=== PATIENT | female | born 1945 | race Caucasian/White ===

== ENCOUNTER 2023-08-11 15:01 | Outpatient (RCR) | payer OTHER, MEDICARE, SELFPAY | END 2023-08-11 23:59 | disposition home or self-care (01) | LOC: RPT 15:01 | PROVIDERS: ATTENDING PHYSICIAN Orthopaedic Surgery; FAMILY PHYSICIAN Student in an Organized Health Care Education/Training Program | DX: M54.2 Cervicalgia (principal); M47.812 Spondylosis without myelopathy or radiculopathy, cervical region; M75.81 Other shoulder lesions, right shoulder; M25.511 Pain in right shoulder; M75.41 Impingement syndrome of right shoulder; S42.101S Fracture of unspecified part of scapula, right shoulder, sequela; Z73.6 Limitation of activities due to disability | CPT/HCPCS: 97010; 97110; 97112; 97162; 97530 ==

== ENCOUNTER 2023-09-09 13:54 | Outpatient (RCR) | payer OTHER, MEDICARE, SELFPAY | END 2023-09-09 23:59 | disposition home or self-care (01) | LOC: RPT 13:54 | PROVIDERS: ATTENDING PHYSICIAN Orthopaedic Surgery; FAMILY PHYSICIAN Student in an Organized Health Care Education/Training Program | DX: M54.2 Cervicalgia (principal); M47.812 Spondylosis without myelopathy or radiculopathy, cervical region; M75.81 Other shoulder lesions, right shoulder; M25.511 Pain in right shoulder; M75.41 Impingement syndrome of right shoulder; S42.101D Fracture of unspecified part of scapula, right shoulder, subsequent encounter for fracture with routine healing; Z73.6 Limitation of activities due to disability; M62.81 Muscle weakness (generalized); R29.3 Abnormal posture; M25.611 Stiffness of right shoulder, not elsewhere classified | CPT/HCPCS: 97010; 97110; 97112 ==

== ENCOUNTER 2023-10-07 13:53 | Outpatient (RCR) | payer OTHER, MEDICARE, SELFPAY | END 2023-10-07 23:59 | disposition home or self-care (01) | LOC: RPT 13:53 | PROVIDERS: ATTENDING PHYSICIAN Orthopaedic Surgery; FAMILY PHYSICIAN Student in an Organized Health Care Education/Training Program | DX: M47.812 Spondylosis without myelopathy or radiculopathy, cervical region; M75.81 Other shoulder lesions, right shoulder; M25.511 Pain in right shoulder; M54.2 Cervicalgia; M75.41 Impingement syndrome of right shoulder; S42.101D Fracture of unspecified part of scapula, right shoulder, subsequent encounter for fracture with routine healing; S42.101S Fracture of unspecified part of scapula, right shoulder, sequela; Z73.6 Limitation of activities due to disability; M62.81 Muscle weakness (generalized); R29.3 Abnormal posture; M25.611 Stiffness of right shoulder, not elsewhere classified | CPT/HCPCS: 97010; 97110; 97112 ==

== ENCOUNTER 2023-10-21 13:12 | Outpatient (RCR) | payer OTHER, MEDICARE, SELFPAY | END 2023-10-31 16:09 | disposition home or self-care (01) | LOC: RPT 13:12 | PROVIDERS: ATTENDING PHYSICIAN Orthopaedic Surgery; FAMILY PHYSICIAN Student in an Organized Health Care Education/Training Program | DX: M62.81 Muscle weakness (generalized) (principal); M54.2 Cervicalgia (principal); Z73.6 Limitation of activities due to disability; M47.812 Spondylosis without myelopathy or radiculopathy, cervical region; M75.81 Other shoulder lesions, right shoulder; M25.511 Pain in right shoulder; M25.611 Stiffness of right shoulder, not elsewhere classified; M75.41 Impingement syndrome of right shoulder; S42.101D Fracture of unspecified part of scapula, right shoulder, subsequent encounter for fracture with routine healing; R29.3 Abnormal posture | CPT/HCPCS: 97010; 97110; 97112 ==

== ENCOUNTER 2024-01-10 14:29 | Outpatient (RCR) | payer OTHER, MEDICARE, SELFPAY | END 2024-01-10 23:59 | disposition home or self-care (01) | LOC: RPT 14:29 | PROVIDERS: ATTENDING PHYSICIAN Physician Assistant Surgical; FAMILY PHYSICIAN Student in an Organized Health Care Education/Training Program | DX: M75.01 Adhesive capsulitis of right shoulder (principal); Z73.6 Limitation of activities due to disability | CPT/HCPCS: 97010; 97110; 97140; 97162 ==

== ENCOUNTER 2024-02-07 13:14 | Outpatient (RCR) | payer OTHER, MEDICARE, SELFPAY | END 2024-02-07 23:59 | disposition home or self-care (01) | LOC: RPT 13:14 | PROVIDERS: ATTENDING PHYSICIAN Physician Assistant Surgical; FAMILY PHYSICIAN Student in an Organized Health Care Education/Training Program | DX: M75.01 Adhesive capsulitis of right shoulder (principal); Z73.6 Limitation of activities due to disability | CPT/HCPCS: 97010; 97110; 97140 ==

== ENCOUNTER 2024-02-28 13:24 | Outpatient (RCR) | payer OTHER, MEDICARE, SELFPAY | END 2024-02-28 15:43 | disposition home or self-care (01) | LOC: RPT 13:24 | PROVIDERS: ATTENDING PHYSICIAN Physician Assistant Surgical; FAMILY PHYSICIAN Student in an Organized Health Care Education/Training Program | DX: M75.01 Adhesive capsulitis of right shoulder (principal); Z73.6 Limitation of activities due to disability | CPT/HCPCS: 97010; 97110; 97140 ==

== ENCOUNTER 2024-08-03 15:45 | Outpatient (RCR) | payer OTHER, MEDICARE, SELFPAY | END 2024-08-03 23:59 | disposition home or self-care (01) | LOC: RPT 15:45 | PROVIDERS: ATTENDING PHYSICIAN Physician Assistant Surgical; FAMILY PHYSICIAN Student in an Organized Health Care Education/Training Program | DX: M75.21 Bicipital tendinitis, right shoulder (principal); Z73.6 Limitation of activities due to disability; R20.2 Paresthesia of skin; M62.81 Muscle weakness (generalized); V49.9XXD Car occupant (driver) (passenger) injured in unspecified traffic accident, subsequent encounter | CPT/HCPCS: 97010; 97110; 97140; 97162 ==

== ENCOUNTER 2024-09-03 14:50 | Outpatient (RCR) | payer OTHER, MEDICARE, SELFPAY | END 2024-09-03 23:59 | disposition home or self-care (01) | LOC: RPT 14:50 | PROVIDERS: ATTENDING PHYSICIAN Physician Assistant Surgical; FAMILY PHYSICIAN Student in an Organized Health Care Education/Training Program | DX: M75.21 Bicipital tendinitis, right shoulder (principal); Z73.6 Limitation of activities due to disability; R20.2 Paresthesia of skin; M62.81 Muscle weakness (generalized); V49.9XXD Car occupant (driver) (passenger) injured in unspecified traffic accident, subsequent encounter | CPT/HCPCS: 97010; 97110; 97140 ==

== ENCOUNTER 2024-09-17 10:02 | Outpatient (RCR) | payer OTHER, MEDICARE, SELFPAY | END 2024-09-17 23:59 | disposition home or self-care (01) | LOC: RPT 10:02 | PROVIDERS: ATTENDING PHYSICIAN Physician Assistant Surgical; FAMILY PHYSICIAN Student in an Organized Health Care Education/Training Program | DX: M75.21 Bicipital tendinitis, right shoulder (principal); Z73.6 Limitation of activities due to disability; R20.2 Paresthesia of skin; M62.81 Muscle weakness (generalized); V49.9XXD Car occupant (driver) (passenger) injured in unspecified traffic accident, subsequent encounter | CPT/HCPCS: 97010; 97110; 97140 ==